=== PATIENT | male | born 1970 | race African-American/Black ===

== ENCOUNTER 2017-06-02 09:02 | Emergency (ER) | payer MEDICAID, OTHER ==
--- NOTE | 2017-06-02 09:26 | EDPHY ---
H & P Stated Complaint: L side abd pain - Personal History Current Tetanus/Diphtheria Vaccine: Yes Current Tetanus Diphtheria and Acellular Pertussis (TDAP): Yes - Medical/Surgical History Hx Asthma: No Hx Chronic Respiratory Disease: No Hx Diabetes: No Hx Cardiac Disease: Yes Hx Renal Disease: No Hx Cirrhosis: No Hx Alcoholism: No Hx HIV/AIDS: No Hx Splenectomy or Spleen Trauma: No Other PMH: aortic valve replacement, - Social History Smoking Status: Former smoker Time Seen by Provider: 06/02/17 09:09 HPI/ROS: CHIEF COMPLAINT: Near syncope, left upper quadrant abdominal pain since to 2 a.m. 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 Today. He woke at 4:00 a.m. To report to work at 6:30 a.m. Today and notes that the pain continues. Not described as exertional. Non radiating. Nonpleuritic. No nausea or vomiting. No abdominal pain. No urinary abnormality such as hematuria dysuria increased frequency. No headache. No recent illness. No cough. No dyspnea. PRIMARY CARE PROVIDER: none . Patient has not established primary care or cardiology follow-up since moving from [place]. REVIEW OF SYSTEMS: A ten point review of systems was performed and is negative with the exception of the items mentioned in the HPI PAST MEDICAL & SURGICAL HISTORY: porcine aortic valve replacement 2013 in [place], [place]. Patient is not completely clear on the specific reasons why he had this performed. SOCIAL HISTORY:Nonsmoker. No drug use no cocaine use. Social alcohol use. Works in food services at [employer] PHYSICAL EXAM (Prior to examination, patient consented to physical exam, hands were washed and my usual and customary physical exam procedures followed) 1) GENERAL: Well-developed, well-nourished, alert and oriented. Appears to be in no acute distress. 2) HEAD: Normocephalic, atraumatic 3) HEENT: Pupils equal, round, reactive to light bilaterally. Sclera anicteric. Nasopharynx, oropharynx, clear, no lesions. Ears bilaterally with normal tympanic membranes. 4) NECK: Full range of motion, no meningeal signs. No carotid bruit 5) LUNGS: Clear auscultation bilaterally, no wheezes, no rhonchi, no retractions. 6) HEART: Regular rate and rhythm, no murmur, no heave, no gallop. 7) ABDOMEN: No guarding, no rebound, no focal tenderness, negative McBurney's, negative Kumari's, negative Rovsing's, negative peritoneal sign, no palpable or pulsatile mass. No splenomegaly. 8) MUSCULOSKELETAL: Moving all extremities, no focal areas of tenderness, no obvious trauma. No peripheral edema or discoloration. 9) BACK: No CVA tenderness, no midline vertebral tenderness, no fluctuance, no step-off, no obvious trauma, no visual or palpable abnormality. 10) SKIN: No rash, no petechiae. 11) Psychiatric: Patient is oriented X 3, there is no agitation. DIFFERENTIAL DIAGNOSIS: In no particular order, including but not limited to myocardial ischemia, pulmonary embolus, chest wall pain, pleural inflammation and pulmonary infectious causes. (Erik Becerra) Constitutional: Initial Vital Signs Temperature (C) 37.1 C 06/02/17 09:06 Heart Rate 75 06/02/17 09:06 Respiratory Rate 16 06/02/17 09:06 Blood Pressure 145/87 H 06/02/17 09:06 O2 Sat (%) 97 06/02/17 09:06 O2 Delivery Mode Room Air Allergies/Adverse Reactions: No Allergies [NKDA] Allergy (Verified 06/02/17 09:06) Home Medications: Medication Instructions Recorded NK [No Known Home Meds] 06/02/17 Medical Decision Making - Diagnostics EKG Interpretation: EKG: Complete interpretation has been separately recorded in the [employer] archive. Summary impression: Sinus rhythm, rate 71, first-degree AV block. (Koby Wheeler) Imaging Results: Imaging Impressions Chest X-Ray 06/02/17 09:21 Impression: Borderline compensated CHF. Images reviewed myself (Erik Becerra) ED Course/Re-evaluation: 9:22 a.m.: Care of patient under supervision of primary Supervising physician Dr Wheeler with whom I discussed case at this time. Plan will be cardiac diagnostics studies including echocardiography. . I reviewed the patient's old medical records. He was scheduled for a TETE [place] [address] Filemon Booker however this was subsequently canceled as he was unable to find a ride home. 11:15 a.m.: Patient was re-evaluated with serial examinations. I reviewed his echocardiography results with him. Informed him that his mitral valve has the prosthetic porcine not his aortic as he initially believed.. Patient was also seen and examined by Dr. Jose Wheeler in the ER. Plan will be discharge home. Patient feels comfortable with this plan. Usual and customary discharge precautions and instructions provided. (Erik Becerra) Other Provider: Independent physician documentation: I evaluated and participated in the management of the patient. I also evaluated the patient independently. My co-signature indicates that I have reviewed this chart and I agree with the findings and plan of care as documented. My personal H&P findings include: The patient presents the ED with a 1 day history of presyncope and vague left flank pain. The patient denies any chest pain, shortness of breath, fever, cough or congestion. Patient does have a history of a porcine valve replacement. He is not had recent follow-up with Cardiology. The patient denies any focal numbness or weakness. He denies any history of fall or trauma. The patient denies neck or back pain. Physical exam: General Appearance: Alert, no distress Eyes: Pupils equal and round no pallor or injection ENT, Mouth: Mucous membranes moist Respiratory: There are no retractions, lungs are clear to auscultation Cardiovascular: Regular rate and rhythm Gastrointestinal: Abdomen is soft and nontender, no masses, bowel sounds normal Neurological: 5/5 strength all 4 extremities Skin: Warm and dry, no rashes Musculoskeletal: Neck is supple nontender Extremities: symmetrical, full range of motion ED course: Patient's EKG and laboratory studies are unremarkable. The patient did have an echocardiogram obtained in the emergency department which was unremarkable for significant valvular heart dysfunction. The patient had no hypotension or tachycardia. His abdominal examination is benign. He has no complaints of chest pain or dyspnea. I do feel the patient can follow up with Cardiology for further evaluation of his symptoms. He will be discharged home with customary aftercare instructions and return precautions. (Koby Wheeler) - Data Points Laboratory Results: Laboratory Results 06/02/17 09:35 06/02/17 09:35 06/02/17 06/02/17 06/02/17 09:35 09:35 09:15 WBC 8.54 10^3/uL 10^3/uL (3.80-9.50) RBC 4.50 10^6/uL 10^6/uL (4.40-6.38) Hgb 14.0 g/dL g/dL (13.7-17.5) Hct 41.3 % % (40.0-51.0) MCV 91.8 fL fL (81.5-99.8) MCH 31.1 pg pg (27.9-34.1) MCHC 33.9 g/dL g/dL (32.4-36.7) RDW 12.9 % % (11.5-15.2) Plt Count 269 10^3/uL 10^3/uL (150-400) MPV 9.2 fL fL (8.7-11.7) Neut % (Auto) 81.7 % H % (39.3-74.2) Lymph % (Auto) 10.4 % L % (15.0-45.0) Russell % (Auto) 6.9 % % (4.5-13.0) Eos % (Auto) 0.1 % L % (0.6-7.6) Baso % (Auto) 0.2 % L % (0.3-1.7) Nucleat RBC Rel Count 0.0 % % (0.0-0.2) Absolute Neuts (auto) 6.97 10^3/uL H 10^3/uL (1.70-6.50) Absolute Lymphs (auto) 0.89 10^3/uL L 10^3/uL (1.00-3.00) Absolute Monos (auto) 0.59 10^3/uL 10^3/uL (0.30-0.80) Absolute Eos (auto) 0.01 10^3/uL L 10^3/uL (0.03-0.40) Absolute Basos (auto) 0.02 10^3/uL 10^3/uL (0.02-0.10) Absolute Nucleated RBC 0.00 10^3/uL 10^3/uL (0-0.01) Immature Gran % 0.7 % % (0.0-1.1) Immature Gran # 0.06 10^3/uL 10^3/uL (0.00-0.10) Sodium 142 mEq/L mEq/L (135-145) Potassium 3.9 mEq/L mEq/L (3.5-5.2) Chloride 104 mEq/L mEq/L (97-110) Carbon Dioxide 27 mEq/l mEq/l (22-31) Anion Gap 11 mEq/L mEq/L (8-16) BUN 14 mg/dL mg/dL (7-23) Creatinine 1.0 mg/dL mg/dL (0.7-1.3) Estimated GFR > 60 Glucose 106 mg/dL H mg/dL (70-100) Calcium 9.0 mg/dL mg/dL (8.5-10.4) Total Bilirubin 0.8 mg/dL mg/dL (0.1-1.4) Conjugated Bilirubin 0.4 mg/dL mg/dL (0.0-0.5) Unconjugated Bilirubin 0.4 mg/dL mg/dL (0.0-1.1) AST 20 IU/L IU/L (17-59) ALT 44 IU/L IU/L (21-72) Alkaline Phosphatase 48 IU/L IU/L (38-126) Troponin I < 0.012 ng/mL ng/mL (0.000-0.034) Total Protein 7.1 g/dL g/dL (6.3-8.2) Albumin 4.4 g/dL g/dL (3.5-5.0) Lipase 19 IU/L L IU/L (23-300) Urine Color YELLOW Urine Appearance CLEAR Urine pH 5.0 (5.0-7.5) Ur Specific Lefors 1.017 (1.002-1.030) Urine Protein NEGATIVE (NEGATIVE) Urine Ketones NEGATIVE (NEGATIVE) Urine Blood NEGATIVE (NEGATIVE) Urine Nitrate NEGATIVE (NEGATIVE) Urine Bilirubin NEGATIVE (NEGATIVE) Urine Urobilinogen NEGATIVE EU EU (0.2-1.0) Ur Leukocyte Esterase NEGATIVE (NEGATIVE) Urine RBC 1-3 /hpf /hpf (0-3) Urine WBC 1-3 /hpf /hpf (0-3) Ur Epithelial Cells NONE SEEN /lpf /lpf (NONE-1+) Urine Mucus TRACE /lpf /lpf (NONE-1+) Urine Glucose NEGATIVE (NEGATIVE) Departure - Departure Disposition: Home, Routine, Self-Care Clinical Impression: Abdominal pain Qualifiers: Abdominal location: left upper quadrant Qualified Code(s): R10.12 - Left upper quadrant pain Condition: Good Instructions: Acute Abdominal Pain (ED) Additional Instructions: Your mitral valve was replaced not yourr aortic valve Referrals: Jorge Mae MD [Medical Doctor] - 1-2 days without fail Stand Alone Forms: Work Excuse
--- NOTE | 2017-06-02 09:32 | CPEKG ---
Heart Rate: 71 RR Interval: 845 P-R Interval: 216 QRSD Interval: 108 QT Interval: 392 QTC Interval: 426 P Mattaponi: 57 QRS Mattaponi: 24 T Wave Mattaponi: 76 EKG Severity - ABNORMAL ECG - EKG Impression: SINUS RHYTHM EKG Impression: FIRST DEGREE AV BLOCK EKG Impression: PROBABLE LEFT VENTRICULAR HYPERTROPHY Electronically Signed By: Koby Wheeler 02-Jun-2017 10:08:23
[2017-06-02 09:42] LABS: PLATELET COUNT 269 10^3/uL (150-400)
--- NOTE | 2017-06-02 10:53 | ECHO ---
[email or web address] [address] [address] Main: [phone] Fax: Transthoracic Echocardiogram Name: LANI GUTIERREZ MR#: [id number] Study Date: 06/02/2017 Study Time: 09:48 AM Date of : 1970 Age: 46 year(s) Height: 180.3 cm (71 in.) Weight: 79.38 kg (175 lb.) BSA: 1.99 m2 Gender: Male Examination: Echo Indication: Chest pain/history of porcine mitral valve replacement 2012/last echo 09/05 Image Quality: Contrast: Requested by: Erik Becerra BP: / Heart Rate: Rhythm: Indication: Chest pain/history of porcine mitral valve replacement 2012/last echo 09/05 Procedure Staff Marketing Performance Analyst: Bev Frank RDCS Reading Physician: Jorge Mae MD Requesting Provider: Conclusions: No pericardial effusion. Preserved left ventricular systolic function with ejection fraction of 60-65%. Mitral valve prosthesis with maximum gradient of 25 mm of mercury mean gradient of 11 mm of mercury. Aortic root measures 3.5 cm. Measurements: Chambers Valvular Assessment AV/MV Valvular Assessment TV/PV Normal Normal Normal Name Value Range Name Value Range Name Value Range Ao Olinda (MM): 3.5 cm (2.2 cm-3.7 AV Vmax: 1.66 m/s (1 m/s-1.7 cm) m/s) IVSd (2D): 0.8 cm (0.6 cm-1.1 AV maxP mmHg ( - ) cm) AV meanP mmHg ( - ) LVDd (2D): 5.7 cm (4.2 cm-5.9 MV E Vmax: 2.37 m/s ( - ) cm) MV A Vmax: 2.58 m/s ( - ) LVDs (2D): 3.0 cm (2.1 cm-4 MV E/A: 0.92 ( - ) cm) MV maxP mmHg ( - ) LVPWd (2D): 0.8 cm (0.6 cm-1 cm) MV meanP mmHg ( - ) LVEF (MOD4): 65 % (>=55 %) MV PHT: 0.168 s ( - ) EF Range: 60-65 % MVA (PHT): 1.3 s ( - ) Continued Measurements: Chambers Valvular Assessment AV/MV Name Value Name Value LADs: 4.9 cm MV DecTime: 616 m/s LADs Lon.5 cm MV VTI: 100.00 cm LA Area: 24.5 cm2 Patient: LANI GUTIERREZ Study Date: 06/02/2017 Page 1 of 2 09:48 AM Additional Vessels Name Value Ao Ascendin.1 cm Findings: Left Ventricle: Normal size left ventricle. No LV hypertrophy. Normal global systolic LV function. The ejection fraction is estimated to be 60-65 %. No regional wall motion abnormality. Right Ventricle: Normal size right ventricle. Left Atrium: The left atrium is mildly dilated. Right Atrium: The right atrium is normal in size. Mitral Valve: There is no mitral valve regurgitation. Moderate mitral valve stenosis is present. A porcine bioprosthesis is in place. MV max PG is 25mmHG. MV mean PG is 11mmHG.. Aortic Valve: The aortic valve is normal in appearance and function. The aortic valve is tri-leaflet. There is no aortic valve regurgitation. Tricuspid Valve: The tricuspid valve is normal in appearance and function. Trivial tricuspid valve regurgitation. Pulmonic Valve: The pulmonic valve is normal in appearance and function. Trivial pulmonic valve regurgitation. Aorta: The aorta is normal. Normal size aortic root measuring 3.5 cm. Normal size ascending aorta measuring 3.1 cm. Pericardium: No pericardial effusion. Exam Comments: Compared to the previous echo of 09/05, no significant change.. (No Signature Object) Patient: LANI GUTIERREZ Study Date: 06/02/2017 Page 2 of 2 09:48 AM [id number]
[2017-06-02 11:30] VITALS: BP 142/86
== END 2017-06-02 11:33 | disposition home or self-care (01) ==
DX: R10.12 Left upper quadrant pain (principal); Z87.891 Personal history of nicotine dependence

== ENCOUNTER 2018-07-17 05:38 | Emergency (ER) | payer OTHER ==
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
[2018-07-17] MEDS ORDERED: NS 1,000 ML IV ONE (05:54)
[2018-07-17] MEDS ORDERED: ACETAMINOPHEN 500 MG TAB PO ONE (05:55)
[2018-07-17] MEDS ORDERED: IOPAMIDOL (ISOVUE-300) 100 ML BTL ONE (06:12)
[2018-07-17 06:31] LABS: PLATELET COUNT 279 10^3/uL (150-400)
[2018-07-17 06:40] LABS: INR 0.93 (0.83-1.16); PROTIME(PATIENT) 12.1 SEC (12.0-15.0)
[2018-07-17 08:31] VITALS: BP 142/75
== END 2018-07-17 09:00 | disposition home or self-care (01) ==
LOC: EDUNIT#
DX: S80.812A Abrasion, left lower leg, initial encounter (principal); S16.1XXA Strain of muscle, fascia and tendon at neck level, initial encounter; E86.9 Volume depletion, unspecified; V49.49XA Driver injured in collision with other motor vehicles in traffic accident, initial encounter; Y92.410 Unspecified street and highway as the place of occurrence of the external cause
CPT/HCPCS: 82435-PO; 82565-PO; 82947-PO; 84132-PO; 84295-PO; 84520-PO; 85014-ER; L0172; Q9967